=== PATIENT | male | born 1975 | race Caucasian/White ===

== ENCOUNTER 2019-02-03 01:26 | Outpatient (CLI) | payer OTHER, SELFPAY ==
[2019-02-03 09:00] LABS: ALT 31 U/L (12-78); AST 22 U/L (15-37); Albumin 3.6 g/dL (3.4-5.0); Alkaline Phosphatase 51 U/L (46-116); Anion Gap 6.9 mmol/L (3-11); BUN 13 mg/dL (7-18); Bilirubin, Total 0.4 mg/dL (0.2-1.0); CO2 29.1 mmol/L (21.0-32.0); CREATININE 0.96 mg/dL (0.70-1.30); Calcium 8.7 mg/dL (8.5-10.1); Chloride 107 mmol/L (98-107); Cholesterol 197 mg/dL (50-200); Glucose 91 mg/dL (70-100); HDL Cholesterol 40 mg/dL (40-60); LDL CHOLESTEROL 129 mg/dL (<100); Potassium 4.1 mmol/L (3.5-5.1); Sodium 143 mmol/L (136-145); Total Protein 6.3 g/dL (6.4-8.2); Triglyceride 111 mg/dL (30-150)
== END 2019-02-03 01:46 ==
PROVIDERS: PCP Family Medicine
DX: Z00.00 Encounter for general adult medical examination without abnormal findings (principal); Z13.220 Encounter for screening for lipoid disorders; Z13.228 Encounter for screening for other metabolic disorders
CPT/HCPCS: 36415; 80053; 80061; 83721

== ENCOUNTER 2021-02-23 03:03 | Outpatient (CLI) | payer OTHER, SELFPAY ==
[2021-02-23 08:46] LABS: Anion Gap 6.1 mmol/L (3-11); BUN 20 mg/dL (7-18); CO2 29.9 mmol/L (21.0-32.0); Calcium 8.7 mg/dL (8.5-10.1); Chloride 107 mmol/L (98-107); Glucose 95 mg/dL (74-106); Potassium 4.4 mmol/L (3.5-5.1); Sodium 143 mmol/L (136-145)
== END 2021-02-23 03:04 | disposition home or self-care (01) ==
LOC: LBO 03:03
DX: Z00.00 Encounter for general adult medical examination without abnormal findings (principal)
CPT/HCPCS: 36415; 80048

== ENCOUNTER 2023-07-18 05:26 | Outpatient (CLI) | payer OTHER, SELFPAY ==
[2023-07-18 08:08] LABS: ALT 23 U/L (16-63); AST 22 U/L (15-37); Albumin 4.1 g/dL (3.4-5.0); Alkaline Phosphatase 69 U/L (46-116); Anion Gap 7.2 mmol/L (3-11); BUN 17 mg/dL (7-18); CO2 30.8 mmol/L (21.0-32.0); CREATININE 1.3 mg/dL (0.70-1.30); Calcium 9.5 mg/dL (8.5-10.1); Calculated LDL 177 mg/dL (<100); Chloride 107 mmol/L (98-107); Cholesterol 253 mg/dL (<200); Estimated GFR 67.34 (mL/min/1.73m2); Glucose 94 mg/dL (74-106); HDL Cholesterol 58 mg/dL (40-60); Potassium 4.4 mmol/L (3.5-5.1); Sodium 145 mmol/L (136-145); Total Protein 7.3 g/dL (6.4-8.2); Triglyceride 92 mg/dL (<150)
[2023-07-19 10:03] LABS: Hepatitis C Ab w Rflx HCV PCR Negative (Negative)
[2023-07-19 10:15] LABS: HIV-1/2 Ag & Ab Screen Negative (Negative)
== END 2023-07-18 05:27 | disposition home or self-care (01) ==
LOC: LBO 05:26
PROVIDERS: PCP Nurse Practitioner Family; Visit Provider Nurse Practitioner Family
DX: Z00.00 Encounter for general adult medical examination without abnormal findings (principal); Z11.4 Encounter for screening for human immunodeficiency virus [HIV]; Z11.59 Encounter for screening for other viral diseases
CPT/HCPCS: 36415; 80053; 80061; 86803; 87389

== ENCOUNTER 2024-05-01 06:12 | Day surgery (SDC) | payer OTHER, SELFPAY ==
--- NOTE | 2024-04-30 16:05 | PDOC.DSDIS_ITS ---
Date of service: 05/01/24 Time of Service: 07:48 Discharge Plan Disposition Patient Disposition: Home Condition: Good Discharge Details Reason For Visit: screening colonoscopy Attending Provider: Nikolai Mojica Primary Care Provider: Guido Connors Home Meds and New Rx's Prescriptions: Continued ibuprofen 200 mg capsule 400 mg PO QID PRN Discontinued bisacodyl [Dulcolax (bisacodyl)] 5 mg tablet,delayed release (DR/EC) 5 mg PO ONCE Qty: 4 0RF Rx Instructions: Take per colonoscopy instructions provided by ordering providers office polyethylene glycol 3350 17 gram/dose powder 238 g PO ONCE Qty: 238 0RF Rx Instructions: Colonoscopy Bowel Prep- Per Instructions Discharge Instructions Additional Instructions: Guan[place], we were able to complete your colonoscopy today without any difficulty. Your prep was excellent. I did not see any signs of tumors, polyps, or anything at all to worry about. I did notice [address] Diverticula are little weak spots in the colon wall that most of us accumulate as we get older. To put this in perspective, most patients have multiple diverticula. Many many patients have diverticula that are too numerous to count. In reality, I would not even say that you have the condition of diverticulosis. I recommendation is the same for you as everyone else: Maintain a diet that is rich in fiber and well-balanced. Stay well-hydrated and keep taking good care of yourself. You should consider another colonoscopy in 10 years. 1. If tolerated, consume a soft, low fiber diet for 1-2 days. 2. Do not drive, drink alcohol, operate machinery, make critical decisions, or do activities that require coordination or balance for 24 hours. 3. Because air was put into your colon during the procedure, expelling air from your rectum (passing gas or farting) is normal. 4. You may not have a bowel movement for 1-3 days because of the colonoscopy prep. This is normal. 5. Go directly to the emergency room if you notice any of the following: Develop chills (warm to touch), or if you have a thermometer and your temperature is above 101 Difficulty breathing or difficultly swallowing Persistent vomiting Severe abdominal pain, other than gas cramps Severe chest pain Black, tarry stools Any bleeding ? exceeding one tablespoon 6. Call your physician if the site where your intravenous was started becomes r ed, swollen, painful, and warm to touch. 7. Your physician has reviewed your pre-procedure medications. Please continue to take those medications as previously ordered. You will be given specific info rmation/education regarding any changes to your medications before leaving. Activity:: Activity as Tolerated Diet:: As Tolerated Discharge Orders Discharge Orders: Discharge Order (Routine); Ordered 04/30/24 Ordered By: Nikolai Mojica DS: Diagnosis Discharge Diagnosis (1) Encounter for screening colonoscopy: Status: Acute Asessment and Plan: Negative screening colonoscopy today; 10-year follow-up for the next scope
--- NOTE | 2024-04-30 16:06 | COLE_ITS ---
Date of service: 05/01/24 Time of Service: 07:50 Colonoscopy Report Date of procedure: 05/01/24 Pre-op diagnosis general: screening colonoscopy Post-op diagnosis procedure note: other (Negative screening colonoscopy) Procedure: colonoscopy Surgeon: Nikolai Mojica Anesthesia Type: General:No Airway Estimated blood loss (mL): 0 Pathology: none sent Complications: None Disposition: same day Indications: Guanako is a 49 year old man who needs a screening colonoscopy Prep: Miralax/Dulcolax Procedure Start Time: 07:30 Procedure End Time: 07:34 Retraction Time: 6 Findings: Negative screening colonoscopy Procedure Description: After the induction of monitored anesthetic care, and with the patient in left lateral decubitus position, I began by performing an external anorectal exam.? Perineum and skin were normal, as was the anal verge.? There was no evidence of external hemorrhoids.? Next, I performed a digital rectal exam.? I did not appreciate any abnormal findings.? Next, I advanced a colonoscope into the rectal vault.? I performed retroflexion.? This was normal.? Using insufflation, I then advanced the colonoscope beyond the rectal folds and into the sigmoid colon before advancing towards the cecum.? The quality of the prep was outstanding.? The scope was noted to be in the cecum by identification of the ileocecal valve and appendiceal orifice.? I then began withdrawing the colonoscope using repeated irrigation as necessary for full evaluation of the colonic mucosa. I did notice 1 single diverticula within the sigmoid colon. Once the scope was withdrawn to the level of the rectum, great care was taken to examine portions of the rectal folds.? Finally, the scope was withdrawn and the patient was brought to the same-day surgery recovery unit as the anesthetic wore off. ?The findings and instructions were shared with the patient prior to discharge. [facility] Bowel Prep [facility] [facility] Bowel Prep Right Colon: 3 Left Colon: 3 Transverse Colon: 3 Total Score: 9
[2024-05-01 06:15] VITALS: BP 122/88; PULSE 77; RESP 18; TEMP 36.5; O2SAT 97
[2024-05-01] MEDS: Lactated Ringers 1,000 ML 80 ML IV (06:40)
--- NOTE | 2024-05-01 07:05 | W.ANESPRE ---
General Info Date of Service Date Performed: 05/01/24 Height: 5 ft 11 in Weight: 90.8 kg Body Mass Index (BMI): 27.9 Surgical Procedure: Operation Date: 05/01/24 07:35 Proposed Procedure Side Surgeon jessi Mojica MD Meds Allergies and Home Medications Allergies Allergy/AdvReac Type Severity Reaction Status Date / Time No Known Allergies Allergy Verified 05/01/24 06:26 Home Medication Medication Instructions Recorded ibuprofen 200 mg capsule 400 mg PO QID PRN 01/29/19 Current Visit Medications: Current Medications Generic Name Dose Route Start Last Admin Trade Name Freq PRN Reason Stop Dose Admin Hyoscyamine Sulfate 0.125 mg 04/30/24 16:07 Hyoscyamine 0.125 Mg Sl/Oral/Chew SL 05/30/24 16:06 DIRECTED PRN Ringer's Solution 1,000 mls @ 80 mls/hr 05/01/24 06:00 05/01/24 06:40 IV 05/01/24 23:59 80 mls/hr INFUSION TAMICA Administration IV Miscellaneous Supplies 1 each 05/01/24 06:00 Iv Access IV 05/01/24 23:59 DIRECTED TAMICA Ondansetron HCl 4 mg 04/30/24 16:07 Ondansetron 4 Mg/2 Ml Vial IVP 05/30/24 16:06 Q4H PRN PRN Nausea / Vomiting Sodium Chloride 0 ml 05/01/24 06:00 Normal Saline Flush 10 Ml Syr IV 05/01/24 23:59 PRN PRN Sodium Chloride 0 ml 05/01/24 06:00 Normal Saline 10 Ml Vial IJ 05/01/24 23:59 DIRECTED PRN Sterile Water 0 ml 05/01/24 06:00 Water,Injection,Sterile 10 Ml Vial IJ 05/01/24 23:59 DIRECTED PRN PFSH Active Problems Active Problems: Problem Status Onset Code Encounter for screening colonoscopy Z12.11 Back pain without radiation M54.9 Chronic left shoulder pain 12/05/17 M25.512, G89.29 Medical History Medical History Hip pain Right - resolved with posture chg. & wght. loss Surgical History Surgical History Hx of appendectomy Tobacco Smoking/Tobacco Use Status: Former Tobacco Use Passive smoking exposure: Yes Second hand exposure: Yes Alcohol Alcohol Intake: former Substance Use Substance use: Current Sobriety Substance use type: former substance user and marijuana Counseling provided: none Vital Signs and Lab Results Vital Signs Most Recent Vital Signs in EMR: Most Recent Vital Signs Temp Pulse Resp BP Pulse Ox 36.5 C 77 18 122/88 97 05/01/24 06:15 05/01/24 06:15 05/01/24 06:15 05/01/24 06:15 05/01/24 06:15 Lab Results Blood Type / Crossmatch: No Data to Display Complete Blood Count: No Data to Display Complete Metabolic Panel: No Data to Display Liver Function Panel: No Data to Display Coagulation Panel: No Data to Display Cardiac Panel: No Data to Display Arterial Blood Gas: No Data to Display Venous Blood Gas: No Data to Display Pancreas Panel: No Data to Display Thyroid Panel: No Data to Display Infectious Disease: No Data to Display Blood Cultures: No Data to Display Toxicology Panel: No Data to Display Anesthesia Assessment and Plan Anesthesia History Personal History: No History of Anesthesia Complications Family History: No Family History of Anesthesia Complications Exercise Tolerance Exercise Tolerance: Metabolic Equivalents>4 Pertinent Negatives Pertinent Negatives: No Symptoms of GERD, No Major Cardiovascular Symptoms or Complaints and No Major Pulmonary Symptoms or Complaints Cardiac & Pulmonary Exam Cardiac Exam: Normal S1/S2 Heart Sounds Pulmonary Exam: Clear Bilateral Breath Sounds Implantable Cardiac Device Does patient have a Pacemaker or an ICD?: No Airway Exam Known Difficult Airway: No Mallampati Class: 2 Mouth Opening: Normal (> 3cm) Thyromental Distance: Greater than 3 cm Neck Range of Motion: Full ROM Neck Circumference: Normal Teeth Condition: Normal Dentition ASA Classification ASA Score: ASA 1 Emergency Case?: No NPO Status NPO Status: NPO Clears >2 hours, Solids >8 hours Anesthesia Plan Resuscitation Status: Full Code Anesthesia Technique: General Anesthesia Airway Planned: Natural Airway Monitors Used: Standard Monitors
[2024-05-01 07:06] VITALS: BMI 27.9
[2024-05-01 07:53] VITALS: BP 125/70; PULSE 75; RESP 16; TEMP 36.6; O2SAT 97
--- NOTE | 2024-05-01 08:00 | W.ANESPOSTOP ---
Postoperative Evaluation Date, Time and Location Date Performed: 05/01/24 Time Performed: 08:00 Patient Location: Day Surgery Unit Vital Signs Most Recent Imported Vital Signs: Most Recent Vital Signs Temp Pulse Resp BP Pulse Ox 36.6 C 75 16 125/70 97 05/01/24 07:53 05/01/24 07:53 05/01/24 07:53 05/01/24 07:53 05/01/24 07:53 Pain Score Most Recent Pain Score: Most Recent Pain Score Pain Level 0 05/01/24 07:53 Assessment Mental Status: Awake (Alert & Oriented to Patient Baseline) Airway and Respiratory Function: Patent airway with normal (patient baseline) respiratory exam Cardiovascular Function: Hemodynamically Stable Hydration Status: Adequately Hydrated Nausea & Vomiting: No Nausea or Vomiting Pain: Pt. Denies Any Pain Peripheral Nerve Block: Patient did not receive a nerve block
[2024-05-01 08:13] VITALS: BP 138/73; PULSE 71; RESP 18; TEMP 36.1; O2SAT 99
== END 2024-05-01 08:30 | disposition home or self-care (01) ==
PROVIDERS: PCP Nurse Practitioner Family; Visit Provider Surgery
PROC: 0DJD8ZZ Inspection of Lower Intestinal Tract, Via Natural or Artificial Opening Endoscopic (ICD-10-PCS; CPT 45378; principal; 2024-05-01 07:30)
DX: Z12.11 Encounter for screening for malignant neoplasm of colon (principal); K57.30 Diverticulosis of large intestine without perforation or abscess without bleeding
CPT/HCPCS: 45378; J2704